=== PATIENT | female | born 2000 | race Caucasian/White ===

== ENCOUNTER 2023-07-30 13:57 | Emergency (ER) | payer OTHER, SELFPAY ==
[2023-07-30 14:10] VITALS: BP 104/72; PULSE 97; RESP 14; TEMP 36.9; O2SAT 100
--- NOTE | 2023-07-30 14:14 | ED.EYEPROB ---
HPI - Eye Problem General Chief complaint: Eye Problems Stated complaint: poss pink eye Source: patient Mode of arrival: ambulatory Limitations: no limitations History of Present Illness HPI Narrative: 22-year-old female presented for complaint of left eye redness, itching, and drainage. Onset about 2 hours prior to arrival. Endorses her son has had the same symptoms for 4 days. Denies visual changes, FB sensation, photophobia. No treatment prior to arrival. No other complaints or concerns. She is 20 weeks gestation. chief complaint: eye pain Related Data Allergies Allergy/AdvReac Type Severity Reaction Status Date / Time sulfamethoxazole Allergy Unknown Verified 07/30/23 14:19 [From Bactrim] trimethoprim [From Bactrim] Allergy Unknown Verified 07/30/23 14:19 Review of Systems Review of Systems: CONSTITUTIONAL: Denies body aches, fever, chills EYES:Endorses redness and pain to Left eye; Denies visual changes, FB sensation, photophobia ENT: Denies rhinorrhea, congestion, sore throat, or otalgia. CARDIOVASCULAR: Denies chest pain, palpitations RESPIRATORY: Denies cough or dyspnea. GASTROINTESTINAL: Denies abdominal pain, nausea, vomiting, or diarrhea. SKIN: Denies rash, itching, or wounds. MUSCULOSKELETAL: Denies back pain, joint pain, or myalgia. NEUROLOGIC: Denies headache, numbness, tingling, or weakness. All systems reviewed & are unremarkable except as noted in HPI and below PMFSH Comments At time of signature, I have reviewed and agree with nursing past medical, surgical, social and family history unless otherwise noted. Please see nursing chart for further information. There is no relevant family history pertinent to the presenting complaint Exam Narrative: GENERAL: Well-appearing HEAD: Normocephalic, atraumatic. EYES: left conjunctival injection, purulent drainage. no eye lid swelling. EOMI. PERRLA, Lid eversion shows no fb. ENT: Mucous membranes pink and moist. No rhinorrhea. TMs normal bilaterally. Throat normal. Uvula midline. CHEST: Clear to auscultation. HEART: Regular rate and rhythm. SKIN: Warm, dry, no rash. Normal skin turgor. NEURO: No focal deficits. Alert and oriented x3 PSYCH: Normal affect. Course Course Emergency Course: Patient is aware of diagnosis, understands and agrees to treatment plan. Anticipatory guidance given. Patient agrees to follow-up as directed and is aware of reasons to seek care at the emergency department. Portions of this record may have been created with voice recognition software Level of Care: Express Care Visit Vital Signs Vital signs: Vital Signs Temperature 98.5 F 07/30/23 14:10 Pulse Rate 97 07/30/23 14:10 Respiratory Rate 14 07/30/23 14:10 Blood Pressure 104/72 07/30/23 14:10 Pulse Oximetry 100 07/30/23 14:10 Oxygen Delivery Room Air 07/30/23 14:10 Temperature 98.5 F 07/30/23 14:10 Pulse Rate 97 07/30/23 14:10 Respiratory Rate 14 07/30/23 14:10 Blood Pressure 104/72 07/30/23 14:10 Pulse Oximetry 100 07/30/23 14:10 Oxygen Delivery Room Air 07/30/23 14:10 MDM - Eye Problem MDM Narrative Medical decision making narrative: Discussed physical exam findings Consistent with left bacterial conjunctivitis. Advised supportive measures and signs/symptoms to go to the ER. Pt is appropriate for outpt treatment and f/u. Differential Diagnosis Differential diagnosis: Likely corneal abrasion, conjunctivitis, acute iritis and other Discharge Plan Discharge Clinical Impression: Bacterial conjunctivitis Patient Disposition: Home, Self-Care Condition: Stable Instructions: Antibiotic Form, Conjunctivitis (ED) Additional Instructions: Avoid touching or rubbing your eye. Use over the counter lubricating eye drops as needed for irritation Use a warm or cool washcloth on your eye for comfort Use eyedrops as directed - you are contagious for 24 hours after starting
== END 2023-07-30 14:30 | disposition home or self-care (01) ==
PROVIDERS: Emergency Provider Nurse Practitioner Family
DX: H10.9 Unspecified conjunctivitis (principal)
CPT/HCPCS: 99213; G0463